=== PATIENT | female | born 1985 | race Caucasian/White ===

== ENCOUNTER → 2018-07-16 | Outpatient (CLI) | payer MEDICAID, SELFPAY ==
[2018-07-16 12:46] LABS: Absolute Lymphocyte Count 2.51 X10^3/ul (0.83-4.51); Absolute Neutrophil Count 8.7 X10^3/uL (2.0-7.7); Basophil# 0.01 X10^3/uL; Basophil% 0.1 % (0-1); Eosinophil# 0.17 X10^3/uL; Eosinophils% 1.4 % (0-5); Hematocrit 34.3 % (37-47); Hemoglobin 11.9 g/dl (12.0-15.0); Lymphocyte # 2.51 X10^3/ul (4.0); Lymphocyte % 20.7 % (19-41); Mean Corp Hgb Conc 34.7 g/gl (32-36); Mean Corpuscular Hgb 30.7 pg (27.0-32.0); Mean Corpuscular Volume 88.4 fL (81-99); Mean Platelet Vol. 10.3 fl (6.2-12.0); Monocyte# 0.63 X10^3/uL; Monocyte% 5.2 % (0-10); Neutrophil # 8.73 X10^3/uL (2.7-7.7); Neutrophil % 72.2 % (47-70); Platelet Count 195 K/mm3 (150-450); RBC Distribution Width CV 13.4 % (11.6-14.6); RBC Distribution Width SD 43.5 fl (35.1-43.9); Red Blood Count 3.88 M/mm3 (4.2-5.4); White Blood Count 12.1 K/mm3 (4.4-11.0)
[2018-07-16 12:56] LABS: Amphetamine Urine VISTA NEGATIVE (<1000 ng/mL); Barbiturate Urine VISTA NEGATIVE (< 200 ng/mL); Benzodiazepine Urine VISTA NEGATIVE (< 200 ng/mL); Cocaine Urine VISTA NEGATIVE (< 300 ng/mL); Ecstacy Urine VISTA NEGATIVE (< 500 ng/mL); Methadone Urine VISTA NEGATIVE (< 300 ng/mL); PCP Urine VISTA NEGATIVE (< 25 ng/mL); THC Urine VISTA NEGATIVE (< 50 ng/mL); Vista UDS pH Range 6
[2018-07-16 13:03] LABS: POSITIVE COUNT NO; POSITIVE DIFFERENTIAL NO; POSITIVE MORPHOLOGY NO
[2018-07-16 13:04] LABS: COTININE Drug Screen Positive (<200 ng/mL)
[2018-07-16 13:08] LABS: Thyroid Stim Hormone (TSH) 1.04 uIU/mL (0.358-3.74)
[2018-07-16 13:11] LABS: Color, Urine Yellow (Yellow); Glucose, Dipstick Normal (Normal); Ketone-Dipstick Negative (Negative); Leukocyte Esterase-Dipstick 500 /ul (Negative); Nitrite-Dipstick Negative (Negative); Occult Blood-Urine Negative /ul (Negative); Protein-Dipstick Negative (Negative); Urine Bilirubin Dipstick Negative (Negative); Urine Clarity Cloudy (Clear); Urine Urobilinogen Normal (Normal)
[2018-07-16 13:57] LABS: HIV - WCH Non-Reactive (Nonreactive); Rubella IgG 143.6 IU/mL
[2018-07-16 16:07] LABS: Chlamydia Trachomatis by PCR Negative (Negative); Neisserai gonorrhoeae by PCR Negative (Negative); Probe Check PASS; Sample Adequacy Control PASS; Specimen Processing Control PASS
[2018-07-17 03:32] LABS: Prenatal RPR NONREACTIVE (NONREACTIVE)
[2018-07-17 10:47] LABS: HEPATITIS B SURFACE AG Negative (Negative); Hep C Antibodies <0.1 s/co ratio (0.0-0.9); Toxoplasma Gondii IgG < 3.0 IU/mL (0.0-7.1); Toxoplasma Gondii IgM < 3.0 AU/mL (0.0-7.9)
[2018-07-21 13:25] LABS: HPV Reflexed? NOT INDICATED
== END | disposition home or self-care (01) ==
LOC: WOBLAB 12:05
PROVIDERS: Visit Provider Obstetrics & Gynecology
DX: Z34.83 Encounter for supervision of other normal pregnancy, third trimester (principal)
CPT/HCPCS: 36415; 80307; 81002; 84443; 85025; 86703; 86762; 86777; 86778; 86803; 87340; 87491; 87591; 88175; G0145

== ENCOUNTER 2018-07-27 18:40 | Inpatient (IN) | payer MEDICAID, SELFPAY ==
[2018-07-27] VITALS (10 sets, daily range): BP systolic 116–140; BP diastolic 50–95; PULSE 68–97; RESP 16–18; TEMP 36.4–36.7; O2SAT 96–98; BMI 37.3
[2018-07-27] MEDS: Cefazolin 2 GM in 0.9% Normal Saline 100 ML IV (18:59)
[2018-07-27] MEDS: Lactated Ringers 1,000 ML 999 ML IV (18:59)
[2018-07-27] MEDS: Oxytocin 30 units/NS 500 ml 30 UNITS/500 ML IV.SOLN 167 UNITS IV (19:00)
[2018-07-27 19:18] LABS: Absolute Lymphocyte Count 3.58 X10^3/ul (0.83-4.51); Absolute Neutrophil Count 12.8 X10^3/uL (2.0-7.7); Basophil# 0.03 X10^3/uL; Basophil% 0.2 % (0-1); Eosinophil# 0.18 X10^3/uL; Hemoglobin 12.4 g/dl (12.0-15.0); Lymphocyte # 3.58 X10^3/ul (4.0); Lymphocyte % 20.1 % (19-41); Mean Corp Hgb Conc 34.4 g/gl (32-36); Mean Corpuscular Hgb 30.7 pg (27.0-32.0); Mean Corpuscular Volume 89.1 fL (81-99); Mean Platelet Vol. 10.6 fl (6.2-12.0); Monocyte# 1.19 X10^3/uL; Monocyte% 6.7 % (0-10); Neutrophil # 12.77 X10^3/uL (2.7-7.7); Neutrophil % 71.7 % (47-70); Platelet Count 246 K/mm3 (150-450); RBC Distribution Width CV 13.3 % (11.6-14.6); RBC Distribution Width SD 43.1 fl (35.1-43.9); Red Blood Count 4.04 M/mm3 (4.2-5.4); White Blood Count 17.8 K/mm3 (4.4-11.0)
[2018-07-27 19:19] LABS: POSITIVE COUNT NO; POSITIVE DIFFERENTIAL NO; POSITIVE MORPHOLOGY NO
[2018-07-27] MEDS: Ondansetron 4 MG/2 ML Vial IV (19:20)
[2018-07-27] MEDS: Ketorolac 30 MG/ML Syringe IV (19:35)
--- NOTE | 2018-07-27 19:51 | PCM.OPRPT ---
Delivery Classification: Stat Final NORA: 08/06/18 Final NORA Source: US >20 weeks Gestational age: 38 Weeks and 4 Days Indications: Breech Presentation in Labor Indications for : Breech - in active labor Description of Procedure: Surgeon: Juan Jose Marcelo MD, FACOG Water Attendant: ANAND Schulz Anesthesia: Dell Roberts CRNA Type of Anesthesia: General Endotracheal Findings: Viable female with Apgars of 8/9 in complete breech presentation with clear amniotic fluid and normal three-vessel placenta. Cervix was completely dilated. Bulgy bag of water present just prior to delivery. Indication: This is a 33-year-old who presents in advanced labor at 38+ weeks gestation with breech presentation. This is first and she was scheduled for primary section later this week. care has otherwise been uneventful. The patient has previously been counseled regarding the risk and indications of this procedure including the possibility of bleeding infection and injury to surrounding structures such as bowel bladder. Procedure: Patient was taken to the operating room where she was noted to be completely dilated so we proceeded with general anesthesia. The patient was prepped and draped in usual sterile fashion and a Berger catheter was placed. The abdomen was entered through a Pfannenstiel incision and peritoneum was entered bluntly. After developing a bladder flap on the lower uterine segment a low transverse incision was made on the uterus and breech was easily delivered onto the operative field the nose mouth and oropharynx were bulb suctioned. Subsequently a viable female was born with Apgars of 8/9. The was noted to cry move all extremities vigorously on the operative field. The umbilical cord was doubly clamped and ligated and handed to the nursery personnel who were present for the delivery. Placenta was delivered and noted to be 3 vessels and normal. Uterus was exteriorized and remaining placental tissue was removed. The uterus was then closed in 2 layers first with running locked 0 Vicryl suture followed by a second imbricating layer with 0 Vicryl suture. 0 Vicryl suture was then used in a horizontal mattress interrupted fashion to affect final hemostasis of the uterine incision line. Normal fallopian tubes and ovaries were visualized and the uterus was returned to the pelvis. Hemostasis was noted and rectus abdominis muscles were reapproximated in the midline with interrupted Number 0 Vicryl suture in a horizontal mattress fashion. Fascia was closed with running Number 1 PDS Strata fix suture. Subcutaneous tissue was irrigated with copious amouts of saline solution and then closed with running 3-0 Vicryl suture. Skin was closed with 4-0 monocryl suture in a running subcuticular fashion. Steri strips, telfa, and tape were placed across the incision. The patient tolerated the procedure well and was taken to the recovery room in satisfactory condition. Sponge, needle, and instrument counts were all reportedly correct. EBL was 750 cc. Ancef 2 gms IV was given prior to the procedure. Spicemen to Pathology: Placenta Complications: None Amniotic Membrane Rupture Type: Artificial - during Amniotic Fluid Description: Clear Placenta Disposition: Sent to Pathology Specimen(s) sent to pathology: Placenta Drain: Berger to straight drain Fluids Replaced: Crystalloid Cord Entanglement: None Cord Vessel Description: 3 Vessels Esitmated Blood Loss (ml): 750 cc Infant Gender: Female (1 minute): 8 (5 minute): 9 Pre-op Antibiotic Given: Ancef 2 grams IV x1 Complications: None - Admit VTE Documentation VTE Present on Admission: Yes VTE Mechan Device Prophylaxis: SCD's
[2018-07-27] MEDS: Lactated Ringers 1,000 ML 100 ML IV (20:00)
--- NOTE | 2018-07-27 20:47 | PCM.DCCSEC ---
Discharge Diet: No Restrictions Discharge Activity: May not drive while taking narcotic pain medications., May Shower, May Take a Tub Bath May resume sexual activity in: 4-6 weeks Lifting Restrictions: 20 pounds Additional Activity Instructions:: Nothing in the vagina for 4-6 weeks. You may return to work/school in 6 weeks. Call your doctor if your incision/area has: Continuous Slow Oozing, Sudden Increased Bleeding, Increased Pain/ Swelling, Increased Redness, Foul Smelling Discharge Call your doctor if you observe: Fever of 101 or Higher, Inability to urinate, Inability to have a bowel movement, Using more than one pad per hour Additional Instructions: If you experience any of the following, contact your healthcare provider. Bleeding that soaks a pad every hour for 2 hours Unrelieved incision or abdominal pain Swelling, redness, discharge or bleeding from your incision or episiotomy site Your incision begins to separate Problems urinating (including inability to urinate or burning while urinating). Visual changes Severe headache Flu-like symptoms Pain or redness in one of both of your breasts Pain, warmth, tenderness or swelling in your legs, especially the calf area Frequent nausea and vomiting Symptoms of depression or anxiety If you experience any of the following, call 911 or go to the nearest Emergency Room. Chest pain Problems breathing Seizure activity Partial or complete paralysis of a body part, slurred speech, weakness or drooping of the face, or a sudden inability to walk or hold your balance Allergies/Adverse Reactions: Allergies No Known Allergies Allergy (Verified 07/27/18 19:00) Medications to take at Discharge Docusate Sodium [Colace] 100 mg PO BID PRN PRN #60 cap 07/27/18 Ibuprofen 400 mg PO Q4H PRN 07/27/18 Oxycodone [Oxyir] 5 mg PO Q6H PRN PRN 7 Days #20 tab 07/27/18 Follow-Up: Call to make an appointment with your doctor for an incision check in 1-2 weeks. You will also need a 6 week post- follow up appointment. Test results from this visit will be discussed in further detail at your follow-up appointment, if applicable. Please Follow Up With: Juan Jose Marcelo MD - [phone] When: Call to make an appointment for an incision check in 2 weeks. Primary Care Physician: Bienvenido Singh [Primary Care Provider] -
--- NOTE | 2018-07-27 20:48 | PLAC_PTH ---
PATIENT: CONNOR OSUNA LOC: [facility] U#:[id number] AGE/SX: 33/F ROOM: WP006 RE07/27/[address]: Dr. Juan Jose Marcelo MD : 1985 BED: 1 DIS: 07/30/2018 SPEC #: [id number] RECD: 07/27/18 23:19 STATUS: LEANDRO CAREN #: [id number] JOSEPHINE: 07/27/18 20:[address]: Juan Jose Marcelo DEPT: SURGICAL PATHOLOGY RECD BY: Lio Anglin ENTERED: 07/28/18 09:08 SP TYPE: PLACENTA OTHR DR: Dr. Bienvenido Singh, DO Tissues: Placenta, NOS Procedures: Surgery Specimen Level V HEADER OPERATION: Primary section PRE-OP DIAGNOSIS: Late care TISSUE SUBMITTED: Placenta MICROSCOPIC DIAGNOSIS Placenta, primary section: Fragmented hawk placenta, 672 gm (10-99th percentile). Umbilical cord knot with patent lumen. Focal acute deciduitis. Moderate subchorionic fibrin deposition with calcification. Mild intravillous fibrin deposition. Trivascular umbilical cord, negative for inflammation. membranes, negative for inflammation. CE:epggy 07/30/18 MICROSCOPIC DESCRIPTION Slides are reviewed. GROSS DESCRIPTION / CLINICAL INFORMATION: A. Weight: 3.075 kg B. Gestational Age: 38 weeks C. Sex: Female Received in fixative is one container labeled with the patient's name and and designated placenta. The specimen consists of a fragmented hawk placenta measuring in aggregate 19 x 14 x 4.5 cm with a stripped weight of 672 gm. The umbilical cord measures 47 cm in length and varies in diameter from 1 to 1.8 cm. A true knot is present within the central portion of the umbilical cord. The knot is fairly tight with a slightly attenuated umbilical cord diameter of 1 cm. Cross-sections through the umbilical cord demonstrate three blood vessels. Point of attachment of the umbilical cord cannot be grossly demonstrated due to the fragmented nature of the placental tissue. The surface of the placenta is bluish-fountain with minimal subchorionic plaque. Blood vessels on the surface show mild congestion. The fragmented membranes are translucent with some adherent clotted blood. The point of disruption cannot be determined due to the fragmented nature of the membranes. The maternal surface of the placenta is reddish-brown with fragmented cotyledons. Sections through the placenta demonstrate cut surfaces which are reddish-pink and spongy. Grossly, no infarct or other parenchymal lesion is found. Cardiopulmonary Supervisor sections are submitted as follows: 1 - umbilical cord, end and membranes, 2 - umbilical cord, maternal end and membranes, 3 - central placenta, surface, 4 - peripheral placenta, 5 - central placenta, maternal surface, 6 - umbilical cord knot. / ANA:peggy 07/29/18 TC:2 CPT: 39963
--- NOTE | 2018-07-27 20:53 | DCINST_ITS ---
Discharge Diet: No Restrictions Discharge Activity: May not drive while taking narcotic pain medications., May Shower, May Take a Tub Bath May resume sexual activity in: 4-6 weeks Lifting Restrictions: 20 pounds Additional Activity Instructions:: Nothing in the vagina for 4-6 weeks. You may return to work/school in 6 weeks. Call your doctor if your incision/area has: Continuous Slow Oozing, Sudden Increased Bleeding, Increased Pain/ Swelling, Increased Redness, Foul Smelling Discharge Call your doctor if you observe: Fever of 101 or Higher, Inability to urinate, Inability to have a bowel movement, Using more than one pad per hour Additional Instructions: If you experience any of the following, contact your healthcare provider. * Bleeding that soaks a pad every hour for 2 hours * Unrelieved incision or abdominal pain * Swelling, redness, discharge or bleeding from your incision or episiotomy site * Your incision begins to separate * Problems urinating (including inability to urinate or burning while urinating). * Visual changes * Severe headache * Flu-like symptoms * Pain or redness in one of both of your breasts * Pain, warmth, tenderness or swelling in your legs, especially the calf area * Frequent nausea and vomiting * Symptoms of depression or anxiety If you experience any of the following, call 911 or go to the nearest Emergency Room. * Chest pain * Problems breathing * Seizure activity * Partial or complete paralysis of a body part, slurred speech, weakness or drooping of the face, or a sudden inability to walk or hold your balance Allergies/Adverse Reactions: Allergies No Known Allergies Allergy (Verified 07/27/18 19:00) Medications to take at Discharge Docusate Sodium [Colace] 100 mg PO BID PRN PRN #60 cap 07/27/18 Ibuprofen 400 mg PO Q4H PRN 07/27/18 Oxycodone [Oxyir] 5 mg PO Q6H PRN PRN 7 Days #20 tab 07/27/18 Follow-Up: Call to make an appointment with your doctor for an incision check in 1-2 weeks. You will also need a 6 week post- follow up appointment. Test results from this visit will be discussed in further detail at your follow- up appointment, if applicable. Please Follow Up With: Juan Jose Marcelo MD - [phone] When: Call to make an appointment for an incision check in 2 weeks. Primary Care Physician: Bienvenido Singh [Primary Care Provider] -
[2018-07-27 22:36] LABS: Amphetamine Urine VISTA POSITIVE (<1000 ng/mL); Barbiturate Urine VISTA NEGATIVE (< 200 ng/mL); Benzodiazepine Urine VISTA NEGATIVE (< 200 ng/mL); Cocaine Urine VISTA NEGATIVE (< 300 ng/mL); Ecstacy Urine VISTA NEGATIVE (< 500 ng/mL); Methadone Urine VISTA NEGATIVE (< 300 ng/mL); PCP Urine VISTA NEGATIVE (< 25 ng/mL); THC Urine VISTA NEGATIVE (< 50 ng/mL); Vista UDS pH Range 7
[2018-07-27] MEDS: 0.9% Saline Lock 10 ML Syringe IV (23:09)
[2018-07-27] MEDS: HYDROmorphone 1 MG/ML Syringe IV (23:09)
[2018-07-27 23:53] LABS: Pathology Specimen OB SEE PATHOLOGY REPORT
[2018-07-28] VITALS (7 sets, daily range): BP systolic 110–121; BP diastolic 54–72; PULSE 69–91; RESP 14–18; TEMP 36.3–36.9; O2SAT 96–98
[2018-07-28] MEDS: Ketorolac 30 MG/ML Syringe IV ×4 (01:23→20:05)
[2018-07-28] MEDS: 0.9% Saline Lock 10 ML Syringe IV ×5 (01:24→20:04)
[2018-07-28] MEDS: Cefazolin 1 GM/50 ML BAG IV ×2 (02:35→11:24)
[2018-07-28] MEDS: Lactated Ringers 1,000 ML 100 ML IV (04:05)
[2018-07-28] MEDS: HYDROmorphone 1 MG/ML Syringe IV (04:15)
[2018-07-28 05:49] LABS: Hematocrit 26.6 % (37-47); Hemoglobin 9.2 g/dl (12.0-15.0); Mean Corp Hgb Conc 34.6 g/gl (32-36); Mean Corpuscular Hgb 30.6 pg (27.0-32.0); Mean Corpuscular Volume 88.4 fL (81-99); Mean Platelet Vol. 10.1 fl (6.2-12.0); Platelet Count 160 K/mm3 (150-450); RBC Distribution Width CV 13.2 % (11.6-14.6); RBC Distribution Width SD 42.6 fl (35.1-43.9); Red Blood Count 3.01 M/mm3 (4.2-5.4); White Blood Count 22.5 K/mm3 (4.4-11.0)
[2018-07-28 06:06] LABS: Scan Indicated on CBC? Y/N NO
--- NOTE | 2018-07-28 07:43 | PN.OBGYN_ITS ---
Subjective: Patient without complaints. Tolerating diet well. Denies flatus. Minimal vaginal bleeding reported. Pain well controlled. - Physical Exam Vital Signs Temp Pulse Resp BP Pulse Ox 98.4 F 91 18 121/64 H 97 07/28/18 04:05 07/28/18 04:05 07/28/18 04:05 07/28/18 04:05 07/28/18 04:05 Oxygen Delivery Method Room Air Weight: 231 lb Body Mass Index (BMI) 37.3 Intake and Output for Last 24 Hours 07/26/18 07/27/18 07/28/18 23:59 23:59 23:59 Intake Total 2094 / 2094 2836 / 2836 Output Total 250 / 250 325 / 325 Balance 1844 / 1844 2511 / 2511 Laboratory Tests Past 24 Hrs 07/27/18 07/27/18 07/27/18 18:49 18:49 21:30 WBC 17.8 H RBC 4.04 L Hgb 12.4 Hct 36.0 L MCV 89.1 MCH 30.7 MCHC 34.4 RDW 13.3 RDW Differential 43.1 Plt Count 246 MPV 10.6 Immature Gran % (Auto) 0.300 Neut % (Auto) 71.7 H Lymph % (Auto) 20.1 [place] % (Auto) 6.7 Eos % (Auto) 1.0 Baso % (Auto) 0.2 Absolute Neuts (auto) 12.8 H Absolute Lymphs (auto) 3.58 Total Counted Not Reportable Urine Opiates Screen Urine Methadone Screen Ur Barbiturates Screen Ur Phencyclidine Scrn Ur Amphetamines Screen U Methamphetamin-MDMA U Benzodiazepines Scrn Urine Cocaine Screen U Cannabinoids Screen Ur Drug Screen Comment Blood Type A NEGATIVE Antibody Screen NEGATIVE Screen NEGATIVE Baby's Blood Type A POSITIVE Baby's SHERRY NEGATIVE 07/27/18 07/28/18 22:15 05:35 WBC 22.5 H RBC 3.01 L Hgb 9.2 L Hct 26.6 L MCV 88.4 MCH 30.6 MCHC 34.6 RDW 13.2 RDW Differential 42.6 Plt Count 160 MPV 10.1 Immature Gran % (Auto) Neut % (Auto) Lymph % (Auto) [place] % (Auto) Eos % (Auto) Baso % (Auto) Absolute Neuts (auto) Absolute Lymphs (auto) Total Counted Urine Opiates Screen POSITIVE H Urine Methadone Screen NEGATIVE Ur Barbiturates Screen NEGATIVE Ur Phencyclidine Scrn NEGATIVE Ur Amphetamines Screen POSITIVE H U Methamphetamin-MDMA NEGATIVE U Benzodiazepines Scrn NEGATIVE Urine Cocaine Screen NEGATIVE U Cannabinoids Screen NEGATIVE Ur Drug Screen Comment Blood Type Antibody Screen Screen Baby's Blood Type Baby's SHERRY Wound is clean, dry, intact. Good urine output. Hemoglobin okay. Medical Necessity - Tobacco Use Smoking Status: Current every day smoker Assessment/Plan Doing well postoperative day #1 status post primary section for breech. Continuing present care.
[2018-07-28] MEDS: oxyCODONE 5 MG Tablet PO ×2 (11:29→18:11)
--- NOTE | 2018-07-28 18:05 | NURSING ---
re-enforcement on frequency of bottle feedings provided to pt. pt encouraged to feed baby
[2018-07-29] MEDS: Ketorolac 30 MG/ML Syringe IV ×3 (02:09→14:30)
[2018-07-29] MEDS: 0.9% Saline Lock 10 ML Syringe IV ×2 (02:09→14:30)
[2018-07-29 02:14] VITALS: BP 125/64; PULSE 74; RESP 18; TEMP 36.7
[2018-07-29] MEDS: oxyCODONE 5 MG Tablet PO ×5 (02:44→21:17)
[2018-07-29 08:00] VITALS: BP 115/46; PULSE 64; RESP 16; TEMP 36.7; O2SAT 97
--- NOTE | 2018-07-29 08:28 | PCM.PN.OB ---
Subjective: No specific complaints. Pain reasonably controlled. Tolerating PO. Bleeding normal. Objective: Afeb VSS - Physical Exam General: Alert, Oriented x3, Cooperative, No apparent distress Lungs: Clear to auscultation, Normal air movement Cardiovascular: Regular rate, Regular Rhythm Abdomen: Soft, Non Tender, Non-Distended, - - Incision intact no signs of infection Extremities: No edema Skin: No rashes Neurological: Neuro grossly intact Psych/Mental Status: Normal Affect Comment: Lochia appropriate Vital Signs Temp Pulse Resp BP Pulse Ox 98.0 F 74 18 125/64 H 97 07/29/18 02:14 07/29/18 02:14 07/29/18 02:14 07/29/18 02:14 07/28/18 20:00 Oxygen Delivery Method Room Air Weight: 231 lb Body Mass Index (BMI) 37.3 Intake and Output for Last 24 Hours /17/29 07//07/29/18 23:59 23:59 23:59 Intake Total 2094 / 2094 3524 / 3524 Output Total 250 / 250 1875 / 1875 Balance 1844 / 1844 1649 / 1649 Medical Necessity - Tobacco Use Smoking Status: Current every day smoker Assessment/Plan Doing well on POD#2. Continue routine PO care. Anticipate discharge home tomorrow.
--- NOTE | 2018-07-29 10:37 | CASEMGMT ---
Social Work Assessment Labor and Delivery Unit Date of Referral: 07/27/2018; Time of Referral: 601 Referred By: Dr. Marcelo; Dr. Gan; social work identification Date of Intervention: 07/29/2018 Time of Intervention: 1030 Reason for Referral: 1. Substance use (alcohol use in ) and late/limited care. 2. Per social work identification - maternal and drug screens positive at time of delivery; PHQ9 score of 3. History obtained from: patient/mother of baby (MOB) and medical records Household composition: MOB, father of baby (FOB) and older son John Haines. Patient's parent/guardian status: MOB is Joseph Haines, 31 years old and to FOB Enrique Haines. MOB denies any form of abuse, control, or intimidation in this relationship. MOB and now have 2 children together. John Haines (born 06[birth year]27[birth year]2010) and baby girl Pricila Haines (born 07-27-2016). Medical History: MOB is G2, P1 to 2 after delivering Pricila. Per medical record, care late and scant with 2 PNC visits, one at 37 weeks on 07-16-18 and another visit appearing to be on 07-23-2018. PNC record and MOB report that NORIS was having menstrual cycles during , and did not realize until about 6 months along that was and only suspected due to heartburn and low energy. MOB reports had 2 negative home tests. MOB delivered baby at 38 weeks via Stat caesarian section delivery for breech presentation. Chart indicates delivery precipitous with NORIS presenting to hospital in labor at around 1700, complete for delivery at 1840, and then delivery at 1859. Pricila born weighing 7 pounds 2 ounces, Apgars 8 and 9 at 1 and 5 minutes of life. Educational Status: MOB reports graduated high school. Denies any issues with reading, writing, or learning comprehension. 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 Supplies: MOB reports that NORIS's sister is bringing MOB baby supplies to MOB today, but that MOB does have bottles, diapers, wipes, clothes, and car seat in place. MOB reports will be using a bassinet for sleeping and that currently working on getting a crib. MOB reports that MOB's mother is going to purchase a can of formula today or tomorrow for the baby. Childcare/Caregiver(s): MOB will be primary caregiver. Transportation: MOB reports transportation is adequate. Programs/Agencies Involved: MOB had medicaid through [facility]. Plans to look into food [employer] and WIC. MOB declines [facility] referral at this time. Denies any other agency involvement. Children Services/Legal Issues: Denies past or present involvement with children services. Reports 6 years ago did have a DUI, went to classes at [employer] (now [facility]) for a short time as mandated by the DUI charge. Behavioral Health Issues: Mental Health History: MOB reports developed depression and some anxiety year or two after son John was born (so no in the period), went on medication and was on this for a few years. MOB reports medication was helpful, but when MOB quit her job was able to go off of the medication without issue, which leads MOB to believe that much of depression was situational. MOB denies any significant depression since quitting job and going off of antidepressant. MOB admits to some stress upon finding out about and at times feeling overwhelmed. MOB reports during time of depression a few years ago did have thoughts of running away and wanting to hide, but not of killing self. Denies any history of suicidal thoughts, plans, intent, or action. No thoughts of harm to others. Chart indicates MOB had a PHQ9 screen done prenatally on 07-16-2018 with a score of 14 out of 27 (moderate depression symptoms present). MOB reports to be feeling much better now that the baby is born. PHQ9 screen this date is a 3 with symptoms acknowledges as little energy, poor sleeping, and poor appetite. MOB attributes these symptoms to the end of rather than due to mood. Substance Use History: Alcohol - MOB reports to this journalists and other writers that prior to knowledge of drank a bout 2 beers a week, no binge drinking or getting drunk. Admission record indicated MOB reported that was drinking one beer daily until knowledge of at 6 months. MOB reports belief that does not have an alcohol use or abuse problem, Marijuana - denies history, Heroin or other opiates - denies history, Cocaine - denies history, prescriptions - reports took one Ritalin for energy prior to knowledge, methamphetamine - reports took this one time about a week ago and took this because was told by a friend that would give MOB energy. MOB report thought it was something like Ritalin but then after ingestion was told that what MOB took was crystalmeth. MOB reports crystalmeth use was only one time. Family History: MOB reports her mother has history of depression. No substance use history in family reported. Drug Screens: Maternal drug screen on 07-16-2018 negative. At time of delivery MOB positive for amphetamines and opiates. Baby's urine positive for amphetamines. MOB admits to methamphetamine use one time within the last week. Denies knowledge of use of opiates though MOB reports that also does not know if any opiates were in the meth that MOB used. Per chart review this journalists and other writers noted that MOB was given opiate Dilaudid and fentanyl at hospital, prior to MOB's urine specimen being given. Family/Social Stressors: Unplanned with MOB and FOB considering adoption. MOB reports was not sure how would feel about having the baby, was worried a about finances of another child, but now that baby is born knows that wants to keep and parent the baby, as does the FOB. MOB reports the family moved during from [facility] to [facility], so this was a change and a stressor. Initially MOB informed this journalists and other writers that there are no concerns with housing, rent, or utilities, but at the end of the assessment disclosed that the family is planning to move once again and this time into MOB's parents home. MOB reports plan to have this move complete by the end of this week. MOB indicates stressor in using methamphetamines when thought had used something like Ritalin. MOB reports worry about her mother and father finding out about drug use and impending children services involvement. MOB reports her father has MS and can get grumpy if things at home are disrupted. Support Systems: MOB reports her sister Karissa is strong emotional support. FOB and MOB's mother are good practical supports. Depression/Shaken Baby/Safe Sleeping : Educated MOB to depression, risk factors, and importance of seeking out help and support should symptoms worsen. Educated to safe sleeping and shaken baby prevention. ASSESSMENT: MOB pleasant, friendly, and cooperative with social work visit. MOB held good eye contact and was non defensive on how communicated. MOB did admit to crystal meth use, only one time, and did ask this journalists and other writers about what levels are showing up in MOB's and baby's system. Educated MOB that do not have specific levels, but that once baby's meconium is back then will likely know the levels that are in the baby's system. MOB accepted this information without issue and just stared at this journalists and other writers. MOB did ask appropriate questions about baby, whether baby has been affected by drug use, and what to expect from children services. MOB asked if children services will give MOB a couple of months to prove that does not use regular and that use of cyrstalmeth was only one time. Educated that children services usually works with families to create a safety plan, that in some instances that removal of children is the only options, but that children services looks at least restrictive option first. Educated MOB that how things progress with children services will be directly impacted by MOB's openness and honesty, and willingness to work with the plan that is set forth by children services. MOB reports that FOB does not use drug, does not have any addiction history, and does not know at this point of MOB using crystalmeth. MOB reports will talk to FOB about this matter. MOB is reporting to have a ibanez with baby, to want to parent baby and to have supplies for baby or coming for baby from family members. MOB report will be moving in with MOB's parents soon so will have additional support. Safe Plan of Care for infant related to substance use: MOB reports to have no intention to use any drugs moving forward. glass worker asked what the plan would be should MOB have a change of mind about this . MOB reports there w3ill be no use in the future of drugs but the plan would be to have the kids go somewhere to be cared for. As for alcohol, MOB report would only drink a beer or two and if consumption would be more than this that would make sure another adult was around to assure safety of kids and of self. MOB declines referrals to any counseling at this time but reports to understand and agreement that children services will likely recommend an assessment of some sort. Intervention: [facility] resources list given along with depression packet. Answered MOB's questions, supportive encouragement provided. PLAN: Will be making referral to [facility] ([facility]) due to substance exposed infant (MOB desires to meet with [facility] for the first time prior to going home). Will return to see MOB and update on children services referral, as well as provide some additional resource information for home going. No other services requested or indicated. -SP Sellers, BOILER TENDER
--- NOTE | 2018-07-29 11:15 | NURSING ---
update received from Jacque woods, she states the pt says she wants to stay today, she is aware that childrens services will need to visit her and the pt wants them to visit in the hosp first. childrens service will visit tomorrow 07/30/18. pt has been encouraged to be up ambulating today, made aware as a surgical pt she needs to ambulate and do more today including showering. pt aware she needs to watch the cpr video and to complete the cert.
[2018-07-29 13:30] VITALS: BP 128/68; PULSE 93; RESP 18; TEMP 36.2; O2SAT 97
--- NOTE | 2018-07-29 14:37 | CASEMGMT ---
Social Work Labor and Delivery Unit Referral to Steph Lundberg at [facility] ([facility]), . Referral due to substance exposed infant. Brief maternal and infant histories provided. Let Steph know that mother of baby (MOB) prefers to meet with [facility] for the first time at the hospital. Received call back from Steph Lundberg who reports will be the worker assigned to the case. Steph will arrive to hospital between [id number] to see MOB and then go from there, likely looking at a safety plan for this family. Steph aware that discharge for MOB and baby slated for tomorrow so if there is an issue with the safety plan then this communications writer will need to be updated. Steph agrees to call if there is an issue with creating an appropriate safety plan. Met with MOB and updated of impending [facility] visit. MOB asked if things look positive. Informed MOB that [facility] will be in to discuss options, that most likely will be looking at a safety plan but that [facility] will discuss and review with MOB. MOB inquiring whether [facility] was informed of family's plan to move in with MOB's mom and dad. Informed MOB that this was communicated to [facility] and that [facility] will discuss with MOB as to what will need to be talked about with family. MOB had baby in between legs, touching baby, smiling at baby, and appearing to engage with baby. Address MOB provided as the home that family is planning to move is: [address] [place] [id number]. MOB's mom is Venice Rodriguez. [phone] Updated Andrés Coffey RN regarding [facility] visit today. Plan: [facility] is following and working on a safety plan for this family. MOB has been given community resource information for home going. Plan to see MOB one more time on 07-30-2018 for some additional resources (WIC application and cribs for kids program). -DAMARIS Sellers, ASSOCIATE PROGRAMMER ANALYST
[2018-07-29] MEDS: Ibuprofen 600 MG Tablet PO (19:44)
[2018-07-29 19:45] VITALS: BP 118/78; PULSE 85; RESP 18; TEMP 36.7
[2018-07-30 01:40] VITALS: BP 103/76; PULSE 80; RESP 18
[2018-07-30] MEDS: oxyCODONE 5 MG Tablet PO ×3 (01:42→13:08)
[2018-07-30] MEDS: Ibuprofen 600 MG Tablet PO (03:39)
--- NOTE | 2018-07-30 07:44 | PCM.PN.OB ---
Subjective: Doing well. No specific complaints. Bleeding light. Objective: AFeb VSS - Physical Exam General: Alert, Oriented x3, Cooperative, No apparent distress Lungs: Clear to auscultation, Normal air movement Cardiovascular: Regular rate, Regular Rhythm Abdomen: Soft, Non Tender, Non-Distended, - - Incision C/D/I no erythema Extremities: No edema Neurological: Neuro grossly intact Psych/Mental Status: Normal Affect Comment: Lochia light Vital Signs Temp Pulse Resp BP Pulse Ox 98.0 F 80 18 103/76 97 07/29/18 19:45 07/30/18 01:40 07/30/18 01:40 07/30/18 01:40 07/29/18 13:30 Oxygen Delivery Method Room Air Weight: 231 lb Body Mass Index (BMI) 37.3 Intake and Output for Last 24 Hours 07/28/07/29/18 07/30/18 23:59 23:59 23:59 Intake Total 3524 / 3524 Output Total 1875 / 1875 Balance 1649 / 1649 Medical Necessity - Tobacco Use Smoking Status: Current every day smoker Assessment/Plan Doing well on POD#3. Cleared for discharge home today. Home going instructions and warnings given.
[2018-07-30 07:45] VITALS: BP 108/60; PULSE 86; RESP 16; TEMP 35.9; O2SAT 96
--- NOTE | 2018-07-30 07:46 | PCM.DC.SUM ---
Discharge Date and Diagnosis Date of Admission: 07/27/18 Date of Discharge: 07/30/18 - Primary Discharge Diagnosis S/P Primary C/S Hospital Course and Treatment Consultations 07/27/18 18:51 Consult: Anesthesia Routine Comment: Reason For Exam: LABOR Operations: - - Primary C/S Summary of Care Provided: The patient is a 33 year old F [admitted in advanced labor with breech presentation. Primary LTCS performed with delivery of live . Postoperative course unremarkable. Hospital course only remarkable for positive drug screen for amphetamines and opiates.] - Physical Exam Vital Signs Temp Pulse Resp BP Pulse Ox 98.0 F 80 18 103/76 97 07/29/18 19:45 07/30/18 01:40 07/30/18 01:40 07/30/18 01:40 07/29/18 13:30 Oxygen Delivery Method Room Air Weight: 231 lb Body Mass Index (BMI) 37.3 Intake and Output for Last 24 Hours 07/28/18 07/29/18 07/30/18 23:59 23:59 23:59 Intake Total 3524 / 3524 Output Total 1875 / 1875 Balance 1649 / 1649 Discharge Diet: No Restrictions Discharge Activity: May not drive while taking narcotic pain medications., May Shower, May Take a Tub Bath May resume sexual activity in: 4-6 weeks Additional Activity Instructions:: Nothing in the vagina for 4-6 weeks. You may return to work/school in 6 weeks. Call your doctor if your incision/area has: Continuous Slow Oozing, Sudden Increased Bleeding, Increased Pain/ Swelling, Increased Redness, Foul Smelling Discharge Call your doctor if you observe: Fever of 101 or Higher, Inability to urinate, Inability to have a bowel movement, Using more than one pad per hour Cleanse incision/area with: Soap & Water Home Medications: Medications to take at Discharge Docusate Sodium [Colace] 100 mg PO BID PRN PRN #60 cap 07/27/18 Ibuprofen 400 mg PO Q4H PRN 07/27/18 Oxycodone [Oxyir] 5 mg PO Q6H PRN PRN 7 Days #20 tab 07/27/18 Following Prescrptions Were Given to Patient: Docusate Sodium [Colace] 100 mg PO BID PRN PRN #60 cap PRN Reason: Constipation Prescription Printed Oxycodone [Oxyir] 5 mg PO Q6H PRN PRN 7 Days #20 tab PRN Reason: Severe Pain (6-11/19) Prescription Printed Primary Care Physician: Bienvenido Singh [Primary Care Provider] - Please Follow Up With: Juan Jose Marcelo MD - [phone] When: Call to make an appointment for an incision check in 2 weeks. Disposition: Home Minutes spent on discharge:: 15 Patient Condition:: Good Medical Necessity - Tobacco Use Smoking Status: Current every day smoker Meaningful Use Info Meaningful Use Diagnoses (Choose all that apply): None applicable
--- NOTE | 2018-07-30 11:00 | CASEMGMT ---
Social Work Labor and Delivery Met with mother of baby (MOB) in room. Baby lying in between MOB's legs on back. MOB touching baby, attending to baby and smiling at baby during social work visit. MOB did immediately use a pacifier when baby started to fuss, as well as gave baby an unfinished bottle. MOB did mention that hopes baby does not cry a lot, but that overall the baby has been doing well. MOB did voice on own, that is not supposed to feed baby too much per the direction of medical staff at hospital, so seeming to understand baby has limits on feeding at this time. . MOB reports visit with [facility] ([facility]) went okay yesterday. MOB reports [facility] wants to do a safety plan where MOB is not to be alone with baby, needs to have another person in the home with MOB and children. MOB reports to be okay with this for now, and reports understanding that much of how the plan moves forward is dependent on what MOB does regarding self care and follow up. MOB reports intent to call [facility] for an assessment later today, as wants to get this started for the [facility] case plan. MOB reports [facility] is coming out to MOB's mother's home at 1600 today to meet with MOB and family again. Talked with MOB about the decision made to move to MOB's parental home as this was another change for MOB during . MOB reports finances were tight, as well as the landlord did not want the family there any longer due to the family having a cat that was not initially disclosed to the landlord. MOB reports the new housing situation will be helpful to all, as both set of adults can contribute financially to the household. Supportive listening and encouragement offered to MOB. Provided MOB with WIC applications and Cribs for Kids information in case MOB wants to look into getting a pack-n-play. MOB expressed thanks. Plan: MOB and baby to discharge home, family is moving in with MOB's parents so there will be another layer of support for this family. [facility] is now involved and making a safety plan for MOB and baby. No other services requested or indicated. Will monitor for meconium drug screen results and report to [facility] as indicated. -DAMARIS Sellers, FILTERER
[2018-07-30 14:20] VITALS: BP 121/72; PULSE 83; RESP 18; TEMP 36.6; O2SAT 98
--- NOTE | 2018-08-04 17:52 | NURSING ---
Follow up phone call made and voicemail left. Bentley VILLANUEVA
== END 2018-07-30 15:10 | disposition home or self-care (01) | DRG 540 ==
PROVIDERS: Admitting Provider Obstetrics & Gynecology; Family Provider Family Medicine; PCP Family Medicine; Referring Provider Obstetrics & Gynecology; Visit Provider Obstetrics & Gynecology
DX: O32.1XX0 Maternal care for breech presentation, not applicable or unspecified (principal); O99.334 Smoking (tobacco) complicating childbirth; O99.324 Drug use complicating childbirth; F15.90 Other stimulant use, unspecified, uncomplicated; F11.90 Opioid use, unspecified, uncomplicated; Z3A.38 38 weeks gestation of pregnancy; Z37.0 Single live birth
CPT/HCPCS: 80307; 85025; 85027; 85461; 86850; 86900; 88307; 90384; 99218; J7120; A4216; G0378; J2405; J2790

== ENCOUNTER → 2018-09-04 | Outpatient (CLI) | payer MEDICAID, SELFPAY ==
[2018-07-27 20:16] VITALS: BMI 37.3
[2018-09-04 15:55] LABS: Internal QC Validated? YES +Cl - CLEAR BKGD; Pregnancy, Serum, hCG Quali. NEGATIVE Negative
[2018-09-04 16:09] LABS: Progesterone Level 0.98 ng/mL (See Comment)
== END | disposition home or self-care (01) ==
LOC: WOBLAB 14:23
PROVIDERS: Visit Provider Obstetrics & Gynecology
DX: N91.2 Amenorrhea, unspecified (principal)
CPT/HCPCS: 36415; 84144; 84703

== ENCOUNTER → 2018-09-07 | Outpatient (CLI) | payer MEDICAID, SELFPAY ==
[2018-07-27 20:16] VITALS: BMI 37.3
[2018-09-07 21:56] LABS: Chlamydia Trachomatis by PCR Negative (Negative); Neisserai gonorrhoeae by PCR Negative (Negative)
[2018-09-07 21:57] LABS: Probe Check PASS; Sample Adequacy Control PASS; Specimen Processing Control PASS
== END | disposition home or self-care (01) ==
PROVIDERS: Referring Provider Obstetrics & Gynecology; Visit Provider Obstetrics & Gynecology
DX: Z11.3 Encounter for screening for infections with a predominantly sexual mode of transmission (principal)
CPT/HCPCS: 87491; 87591